=== PATIENT | female | born 2000 | race Caucasian/White ===

== ENCOUNTER 2023-03-19 13:34 | Emergency (ER) | payer MEDICAID ==
[~2023-03-19] VITALS: Ht 162.6 cm; Wt 90.7 kg
[2023-03-19] VITALS (9 sets, daily range): BP systolic 115–132; BP diastolic 67–89
[2023-03-19 15:15] LABS: BASO% 0.5 % (0-3); EOS% 4.2 % (0-8); HEMATOCRIT 40.5 % (37.0-47.0); HEMOGLOBIN 12.8 g/dl (12.0-16.0); IMMATURE GRANULOCYTES 0.9 % (0.0-5.0); LYMPH% 20.3 % (15-41); MEAN CELL VOLUME 89.6 fL CALC (80.0-100.0); MEAN CORPUSCULAR HGB 28.3 pG CALC (26.0-32.0); MEAN CORPUSCULAR HGB CONC 31.6 g/dL CAL (32.0-36.0); MONO% 4.2 % (2-13); NEUT# 10.42 thou/uL (2.00-7.15); NEUT% 69.9 % (42-76); RED BLOOD COUNT 4.52 mill/uL (4.20-5.60)
[2023-03-19 15:26] LABS: ALBUMIN 4.3 g/dL (3.2-5.0); ALKALINE PHOSPHATASE 92 u/l (38-126); ANION GAP 14 (6-22 (CALC)); BILIRUBIN, TOTAL 0.3 mg/dL (0.02-1.3); BUN 16 mg/dL (7-17); BUN/CREATININE RATIO 22 (12-20 (CALC)); CARBON DIOXIDE 25 mmol/l (22-30); CHLORIDE 104 mmol/l (95-108); CREATININE 0.7 mg/dL (0.5-1.0); GFR FOR AFR.AMER. > 60 ML/MIN (>=60 (CALC)); GFR OTHER RACES > 60 ML/MIN (>=60 (CALC)); POTASSIUM 3.5 mmol/l (3.5-5.1); SGOT/AST 29 u/l (14-36); SODIUM 140 mmol/l (137-146); TOTAL PROTEIN 8.1 g/dL (6.3-8.2)
[2023-03-19] MEDS ORDERED: ALBUTEROL108 MCG/AC (15:55)
[2023-03-19] MEDS ORDERED: PREDNISONE50 MG PO (16:04)
== END 2023-03-19 16:54 | disposition home or self-care (01) ==
LOC: ED 13:34
PROVIDERS: Family Medicine
DX: J45.901 Unspecified asthma with (acute) exacerbation (principal)

== ENCOUNTER 2023-08-14 20:18 | Emergency (ER) | payer MEDICAID ==
[2023-08-14] VITALS (8 sets, daily range): BP systolic 103–131; BP diastolic 60–72
[~2023-08-14] VITALS: Ht 162.6 cm; Wt 113.0 kg
[~2023-08-14 20:18] MED LIST: ALBUTEROL108 MCG/AC; MOMETASONE FURO0.11 EX; PREDNISONE50 MG PO; SYMBICORT 80-4.5MCG INHW/SPAC
[2023-08-14 20:49] LABS: BASO% 0.2 % (0-3); HEMATOCRIT 38.3 % (37.0-47.0); HEMOGLOBIN 12.7 g/dl (12.0-16.0); IMMATURE GRANULOCYTES 0.2 % (0.0-5.0); LYMPH% 15.3 % (15-41); MEAN CELL VOLUME 86.5 fL CALC (80.0-100.0); MEAN CORPUSCULAR HGB 28.7 pG CALC (26.0-32.0); MEAN CORPUSCULAR HGB CONC 33.2 g/dL CAL (32.0-36.0); MONO% 5.9 % (2-13); NEUT# 9.31 thou/uL (2.00-7.15); NEUT% 76.4 % (42-76); RED BLOOD COUNT 4.43 mill/uL (4.20-5.60)
[2023-08-14 20:59] LABS: ALKALINE PHOSPHATASE 113 u/l (38-126); BUN 10 mg/dL (7-17); BUN/CREATININE RATIO 17 (12-20 (CALC)); CARBON DIOXIDE 20 mmol/l (22-30); CHLORIDE 107 mmol/l (95-108); CREATININE 0.6 mg/dL (0.5-1.0); GFR FOR AFR.AMER. > 60 ML/MIN (>=60 (CALC)); GFR OTHER RACES > 60 ML/MIN (>=60 (CALC)); SGOT/AST 31 u/l (14-36); SODIUM 138 mmol/l (137-146); TOTAL PROTEIN 6.6 g/dL (6.3-8.2)
[2023-08-14 21:00] LABS: ANION GAP 14 (6-22 (CALC)); BILIRUBIN, TOTAL 0.6 mg/dL (0.02-1.3); POTASSIUM 3.1 mmol/l (3.5-5.1)
[2023-08-14 22:49] LABS: URINE BILIRUBIN - DIPSTICK Negative (NEGATIVE); URINE BLOOD DIPSTICK Trace-lysed (NEGATIVE); URINE COLOR Yellow; URINE GLUCOSE - DIPSTICK Negative (NEGATIVE); URINE KETONE Negative (NEGATIVE); URINE LEUK ESTERASE Large (NEGATIVE); URINE NITRITE - DIPSTICK Negative (Negative); URINE PH 5.5 (4.5-8.0); URINE PROTEIN - DIPSTICK Negative (NEG-TRACE); URINE UROBILINOGEN - DIPSTICK 0.2 E.U./dL (0.2)
[2023-08-14 22:59] LABS: URINE BACTERIA MODERATE hpf; URINE MUCUS FEW hpf (NONE-FEW); URINE SQUAMOUS EPITHELIAL CELL FEW EPI/hpf (0-FEW)
== END 2023-08-14 23:40 | disposition home or self-care (01) ==
LOC: ED 20:18
PROVIDERS: Family Medicine
DX: J45.901 Unspecified asthma with (acute) exacerbation (principal); F14.988 Cocaine use, unspecified with other cocaine-induced disorder; J98.01 Acute bronchospasm; Z20.822 Contact with and (suspected) exposure to COVID-19

== ENCOUNTER 2024-02-21 15:11 | Emergency (ER) | payer MEDICAID ==
[~2024-02-21] VITALS: Ht 170.2 cm; Wt 100.0 kg
[~2024-02-21 15:11] MED LIST changes: +ALBUTEROL SUL0.083 % IN; +PREDNISONE20 MG PO; +PROAIR HFA IN; +VENTOLIN HFA108 MCG INHW/SPAC; +ZPAK PO
[2024-02-21] MEDS ORDERED: MAGNESIUM SULFATE HEPTAHYDRATE 50 ML IV ONE (15:20)
[2024-02-21] MEDS ORDERED: methylPREDNISolone SODIUM SUCC 125 MG/2 ML SDV IV ONE (15:20)
[2024-02-21 15:21] VITALS: BP 113/70
[2024-02-21] MEDS ORDERED: IPRATROPIUM-Albuterol 0.5MG-2.5MG/3 ML NEB ONE ×2 (15:25)
[2024-02-21 15:33] VITALS: BP 125/106
[2024-02-21 15:37] LABS: BASO% 0.6 % (0-3); HEMATOCRIT 40.4 % (37.0-47.0); HEMOGLOBIN 13.1 g/dl (12.0-16.0); IMMATURE GRANULOCYTES 0.2 % (0.0-5.0); LYMPH% 20.1 % (15-41); MEAN CELL VOLUME 89.6 fL CALC (80.0-100.0); MEAN CORPUSCULAR HGB CONC 32.4 g/dL CAL (32.0-36.0); MONO% 3.9 % (2-13); NEUT# 8.45 thou/uL (2.00-7.15); NEUT% 59.2 % (42-76); RED BLOOD COUNT 4.51 mill/uL (4.20-5.60); RED CELL DISTRI WIDTH 14.1 % (11.5-15.5)
[2024-02-21 15:49] LABS: ALBUMIN 4.3 g/dL (3.2-5.0); BILIRUBIN, TOTAL 0.4 mg/dL (0.02-1.3); CREATININE 0.7 mg/dL (0.5-1.0); POTASSIUM 3.2 mmol/l (3.5-5.1); TOTAL PROTEIN 7.6 g/dL (6.3-8.2)
[2024-02-21] MEDS ORDERED: ALBUTEROL SULFATE 2.5 MG VIAL IN ONE (16:05)
[2024-02-21] MEDS ORDERED: IPRATROPIU0.5 MG/3 M IN (17:09)
[2024-02-21 17:51] VITALS: BP 125/106
[2024-02-24] MEDS ORDERED: XANAX0.5 MG PO (12:13)
== END 2024-02-21 17:55 | disposition home or self-care (01) ==
LOC: ED 15:11
PROVIDERS: Family Medicine
DX: J45.901 Unspecified asthma with (acute) exacerbation (principal); Z20.822 Contact with and (suspected) exposure to COVID-19
CPT/HCPCS: J3475

== ENCOUNTER 2024-02-22 07:53 | Observation (INO) | payer MEDICAID ==
[~2024-02-22] VITALS: Ht 170.2 cm; Wt 99.7 kg
[2024-02-22] VITALS (31 sets, daily range): BP systolic 91–152; BP diastolic 51–113
[~2024-02-22 07:53] MED LIST changes: +IPRATROPIU0.5 MG/3 M IN
--- NOTE | 2024-02-22 07:55 | NUR ---
PT TO ER ROOM 1 WITH STEADY GAIT.
[2024-02-22] MEDS ORDERED: IPRATROPIUM-Albuterol 0.5MG-2.5MG/3 ML NEB ONE ×2 (08:10)
[2024-02-22] MEDS ORDERED: methylPREDNISolone SODIUM SUCC 125 MG/2 ML SDV IV ONE (08:10)
[2024-02-22] MEDS ORDERED: MAGNESIUM SULFATE HEPTAHYDRATE 50 ML IV ONE ×2 (08:15→14:10)
--- NOTE | 2024-02-22 08:17 | NUR ---
PT PLACED ON 3 L NC DUE TO OXYGEN SATURATION NOT IMPROVING.
[2024-02-22] MEDS ORDERED: SODIUM CHLORIDE 0.9% 1,000 ML IV ONE (08:30)
--- NOTE | 2024-02-22 08:30 | NUR ---
PATIENT BEING MEDICATED PER ORDER. OXYGEN SATURATIONS REMAIN LOW DESPITE TREATMENTS. WILL CONTINUE TO MONITOR.
[2024-02-22 08:35] LABS: HEMATOCRIT 42.1 % (37.0-47.0); HEMOGLOBIN 13.4 g/dl (12.0-16.0); IMMATURE GRANULOCYTES 0.9 % (0.0-5.0); LYMPH% 6.7 % (15-41); MEAN CELL VOLUME 90.5 fL CALC (80.0-100.0); MEAN CORPUSCULAR HGB 28.8 pG CALC (26.0-32.0); MEAN CORPUSCULAR HGB CONC 31.8 g/dL CAL (32.0-36.0); MONO% 1.1 % (2-13); NEUT# 19.8 thou/uL (2.00-7.15); NEUT% 91.3 % (42-76); RED BLOOD COUNT 4.65 mill/uL (4.20-5.60); RED CELL DISTRI WIDTH 14.3 % (11.5-15.5)
[2024-02-22] MEDS ORDERED: ALBUTEROL SULFATE 2.5 MG VIAL IN ONE ×2 (08:50→09:05)
[2024-02-22 08:52] LABS: ALBUMIN 4.5 g/dL (3.2-5.0); BILIRUBIN, TOTAL 0.3 mg/dL (0.02-1.3); CREATININE 0.5 mg/dL (0.5-1.0); POTASSIUM 3.7 mmol/l (3.5-5.1); TOTAL PROTEIN 7.4 g/dL (6.3-8.2)
[2024-02-22] MEDS ORDERED: EPINEPHrine HCL 1 MG/ML AMP IM ONE (09:05)
[2024-02-22] MEDS ORDERED: ALBUTEROL SULFATE 2.5 MG VIAL ONE (09:10)
--- NOTE | 2024-02-22 09:13 | NUR ---
PT RECEIVING BREATHING TREATMENTS AT THIS TIME. WILL CONTINUE TO MONITOR.
--- NOTE | 2024-02-22 10:02 | NUR ---
PT AWAITING ADMISSION TO NEW ROOM. WILL CONTINUE TO MONITOR.
--- NOTE | 2024-02-22 10:25 | NUR ---
PT ARRIVED TO [facility] FROM ER VIA W/C. PT IS ALERT AND ORIENTED X 3, NO C/O PAIN AT THIS TIME. PT HAS O2 @ 3 LITERS ON VIA NC, O2 SATS @ 94%; PT BREATHING IS LABORED BUT SOB IS IMPROVING, LUNG SOUNDS CLEAR AND DIMINISHED. PT ABD IS SOFT WITH ACTIVE BS, LBM 2 DAYS AGO REPORTED BY PT. PT SKIN CLEAN AND INTACT. PT AMBULATES WELL TO BATHROOM FOR TOILETING NEEDS. PT HAS CALL LIGHT WITHIN REACH AND SAFETY MEASURES IN PLACE AT THIS TIME.
--- NOTE | 2024-02-22 10:25 | NUR ---
REPORT GIVEN TO HODAN
[2024-02-22] MEDS ORDERED: ACETAMINOPHEN 325 MG/TAB PO PRN (11:50)
[2024-02-22] MEDS ORDERED: MAGNESIUM HYDROXIDE 30 ML UDC PO PRN (11:50)
--- NOTE | 2024-02-22 12:00 | NUR ---
PT SITTING UP IN BED EATING LUNCH. PT HR IN THE 130'S, PT DENIES ANY FEELINGS OF HEART PALPATATIONS. EKG ORDERED AND NORMAL, ST. HR DOWN TO 115. PROVIDER IS AWARE. PT HAS CALL LIGHT WITHIN REACH AND SAFETY MEASURES IN PLACE AT THIS TIME.
[2024-02-22] MEDS ORDERED: methylPREDNISolone Sod Succ 40 MG/ML SDV IV SCH (14:00)
[2024-02-22] MEDS ORDERED: IPRATROPIUM-Albuterol 0.5MG-2.5MG/3 ML NEB PRN (14:05)
[2024-02-22] MEDS ORDERED: LEVALBUTEROL HCL 1.25 MG/3 ML VIAL ONE (14:08)
[2024-02-22] MEDS ORDERED: ALPRAZolam 0.25 MG PO PRN (14:10)
[2024-02-22] MEDS ORDERED: LEVALBUTEROL HCL 1.25 MG/3 ML VIAL NEB PRN (14:10)
[2024-02-22] MEDS ORDERED: IPRATROPIUM-Albuterol 0.5MG-2.5MG/3 ML NEB SCH (15:00)
[2024-02-22] MEDS ORDERED: LEVALBUTEROL HCL 1.25 MG/3 ML VIAL NEB SCH (15:00)
[2024-02-22] MEDS ORDERED: IPRATROPIUM BROMIDE 0.5 MG/2.5 ML SOL IN SCH (15:00)
[2024-02-22] MEDS ORDERED: ALPRAZolam 0.5 MG/TAB PO PRN (15:14)
--- NOTE | 2024-02-22 16:00 | NUR ---
PT IN BED WITH HOB UP, PT CONTINUES TO HAVE SOB, BREATHING TX ADMINISTERED, PROVIDER IS AWARE. NEW ORDERS ENTERED. PT HAS CALL LIGHT WITHIN REACH AND SAFETY MEASURES IN PLACE AT THIS TIME.
--- NOTE | 2024-02-22 16:20 | NUR ---
PT ARRIVED TO THE UNIT VIA , PT AMBULATED TO THE BED FROM THE WITH A STEADY GAIT, PT'S RESPIRATION RATE IS 28, PT ORIENTED TO THE ROOM AND CALL MAGANA SYSTEM, PT IS A&O X4, COARSE LUNG SOUNDS, PT IS ON O2 AT 3L VIA NC,PUPILS PERRL, STRONG RADIAL AND PEDAL PULSES, PT APPEARS TO BE EXTREMLY ANXIOUS, RELAXATION TECHS HAVE BEEN ATTEMPTED WITH NO SUCCESS, SAFETY MEASURES INFORCED, CALL MAGANA WITHIN REACH
--- NOTE | 2024-02-22 16:33 | NUR ---
PT TRANSFERRED TO ICU BED 6 PER ; PT C/O THAT ROOM TEMPERATURE IS TOO HOT AND WANTS COOLER ROOM.
[2024-02-22] MEDS ORDERED: AZITHROMYCIN 500 MG in SODIUM CHLORIDE 0.9% 250 ML IV SCH (17:00)
--- NOTE | 2024-02-22 17:00 | NUR ---
PT SITTING UP IN BED EATING DINNER, PT DENIES ANY NEEDS AT THIS TIME, CALL MAGANA WITHIN REACH
[2024-02-22] MEDS ORDERED: ALPRAZolam 0.5 MG/TAB PO ONE (17:25)
--- NOTE | 2024-02-22 17:30 | NUR ---
PER PT'S REQUEST HER MOTHER WAS CALLED AND GIVEN AN UPDATE ON HER
[2024-02-22] MEDS ORDERED: SODIUM CHLORIDE 0.9% 1,000 ML IV PRN (18:35)
--- NOTE | 2024-02-22 20:00 | NUR ---
pt assessed , expiratory wheezes on right side , anterior and posteriorly to the base. Left side clear. no pain , pt slightly anxius offfered xanax declined at this time. HR 110-120. all monitors on . 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 gave blankets hung IVF at 125cc/hr. appled water humidirt to nsal cannula , gave pt kleenex and cold wsh rags , mouthwash. monitoring pt closely.
[2024-02-22] MEDS ORDERED: ENOXAPARIN SODIUM 40 MG/0.4 ML SYR SC SCH (21:00)
[2024-02-22] MEDS ORDERED: MONTELUKAST SODIUM 10 MG/TAB PO SCH (21:00)
--- NOTE | 2024-02-22 22:00 | NUR ---
pt assessed , no change in assessment. all monitors on pt sitting up in bed . on [place].
[2024-02-23] VITALS: BP 117/70
--- NOTE | 2024-02-23 | NUR ---
pt assessment better less anxious heart rate down pt resting comfortably. O2 sats 92-94 , pt gettign nebd from RT.
--- NOTE | 2024-02-23 02:00 | NUR ---
pt assessment unchanged , pt walked to bathroom earlier steady gait. ivf on at 125cc/h NS. resting comfortbaly. non labored breathing . oxygen on at 2 L. call palmer within reach.
[2024-02-23 04:00] VITALS: BP 99/70
--- NOTE | 2024-02-23 04:00 | NUR ---
assessment unchanged call within reach . RR easy and unlabored. 2L NC ivf at 125cc/hr.o monitoring and evaluation advisor sats 94%
[2024-02-23 05:47] LABS: HEMATOCRIT 38.9 % (37.0-47.0); HEMOGLOBIN 12.4 g/dl (12.0-16.0); IMMATURE GRANULOCYTES 1.1 % (0.0-5.0); MEAN CORPUSCULAR HGB 29.3 pG CALC (26.0-32.0); MEAN CORPUSCULAR HGB CONC 31.9 g/dL CAL (32.0-36.0); PLATELET COUNT 362 thou/uL (130-400); RED BLOOD COUNT 4.23 mill/uL (4.20-5.60); RED CELL DISTRI WIDTH 14.9 % (11.5-15.5)
[2024-02-23 06:00] VITALS: BP 100/60
[2024-02-23 06:00] LABS: ALBUMIN 3.6 g/dL (3.2-5.0); BILIRUBIN, TOTAL 0.3 mg/dL (0.02-1.3); CREATININE 0.4 mg/dL (0.5-1.0); MAGNESIUM 2.1 mg/dL (1.6-2.3); TOTAL PROTEIN 6.3 g/dL (6.3-8.2)
[2024-02-23 06:14] LABS: MANUAL DIFFERENTIAL YES
[2024-02-23 06:23] LABS: BAND 1 % (0-8)
--- NOTE | 2024-02-23 06:23 | NUR ---
pt rounded on am solumedrol given fluids going at 125cc/hr, pt now in NSR , not ST anymore. HR decreased to normal range, BP 100/60, pt resting comfortably on 2L. call palmer within reach.
--- NOTE | 2024-02-23 07:00 | NUR ---
PT LAYING IN BED RESTING WITH EYES CLOSED, AROUSES EASILY TO VERBAL STIMULI, PT A&O X3, PUPILS PERRL, LUNG SOUNDS DIMINISHED WITH EXPIRATORY WHEEZES ON THE R SIDE, STRONG RADIAL AND PEDAL PULSES, 20G RAC IV WITH FLUIDS INFUSING AT PRESCRIBED RATE, SAFETY MEASURES REINFORCED, CALL MAGANA WITHIN REACH
--- NOTE | 2024-02-23 08:30 | NUR ---
ISABEL AT BEDSIDE DISCUSSING PLAN OF CARE
--- NOTE | 2024-02-23 08:50 | NUR ---
PT SITTING UP IN THE BED EATING BREAKFAST, SHOWS NO SIGNS OF DISTRESS, REMINDED TO CALL FOR ASSISTANCE, CALL MAGANA WITHIN REACH
[2024-02-23 09:16] VITALS: BP 116/88
[2024-02-23] MEDS ORDERED: PREDNISONE50 MG PO (11:55)
--- NOTE | 2024-02-23 12:00 | NUR ---
PT SITTING UP IN BED WATCHING TV AND EATING LUNCH, DENIES ANY NEEDS AT THIS TIME, PT REMINDED TO CALL FOR ASSISTANCE, CALL MAGANA WITHIN REACH
--- NOTE | 2024-02-23 15:05 | NUR ---
Discharge instructions given. Patient verbalizes understanding of same. Discharged in stable condition via Wheelchair to Home with staff. All belongings sent with pt.
[2024-02-23] MEDS ORDERED: methylPREDNISolone Sod Succ 40 MG/ML SDV IV SCH (21:00)
--- NOTE | 2024-02-24 12:06 | NUR ---
Discharge follow up call completed 02/24/24. Pt states she has been doing fairly well with a few episodes of chest tightness which she attributes to anxiety. Patient asked if hospitalist would be willing to prescribe anxiety medication until she can get in to her PCP. Request has been referred to case management. Patient is contacting PCP today to schedule a follow up appointment. No other needs or concerns verbalized at this time.
[2024-02-24] MEDS ORDERED: XANAX0.5 MG PO (12:13)
== END 2024-02-23 15:05 | disposition home or self-care (01) ==
LOC: ED 07:53 → ED-I 09:26 → ED 09:48 → MS2 09:49 → ICU 16:30
PROVIDERS: Family Medicine; ADMIT Student in an Organized Health Care Education/Training Program; ATTEND Student in an Organized Health Care Education/Training Program
DX: J45.51 Severe persistent asthma with (acute) exacerbation (principal); J96.91 Respiratory failure, unspecified with hypoxia; E87.3 Alkalosis; F41.9 Anxiety disorder, unspecified; E66.9 Obesity, unspecified; Z20.822 Contact with and (suspected) exposure to COVID-19
CPT/HCPCS: J1650; J3475

== ENCOUNTER 2024-03-12 21:25 | Inpatient (IN) | payer OTHER, MEDICAID ==
[~2024-03-12] VITALS: Ht 167.6 cm; Wt 111.0 kg
[~2024-03-12 21:25] MED LIST changes: +XANAX0.5 MG PO
[2024-03-12] MEDS ORDERED: PROPOFOL 100 ML IV ONE (21:31)
[2024-03-12] MEDS ORDERED: PROPOFOL 10 MG/ML 100ML VIAL IV ONE (21:40)
[2024-03-12] MEDS ORDERED: ALBUTEROL SULFATE 2.5 MG VIAL IN ONE ×2 (21:50)
[2024-03-12] MEDS ORDERED: methylPREDNISolone SODIUM SUCC 125 MG/2 ML SDV IV ONE (21:55)
[2024-03-12] MEDS ORDERED: diazePAM 10 MG/2 ML VIAL ONE (22:02)
[2024-03-12] MEDS ORDERED: diazePAM 10 MG/2 ML VIAL IV ONE (22:05)
[2024-03-12 22:11] LABS: BASO% 0.7 % (0-3); EOS% 11.5 % (0-8); HEMATOCRIT 36.3 % (37.0-47.0); HEMOGLOBIN 11.6 g/dl (12.0-16.0); IMMATURE GRANULOCYTES 3.4 % (0.0-5.0); LYMPH% 19.5 % (15-41); MEAN CELL VOLUME 89.4 fL CALC (80.0-100.0); MEAN CORPUSCULAR HGB 28.6 pG CALC (26.0-32.0); MONO% 2.6 % (2-13); NEUT# 12.97 thou/uL (2.00-7.15); NEUT% 62.3 % (42-76); RED BLOOD COUNT 4.06 mill/uL (4.20-5.60); RED CELL DISTRI WIDTH 14.4 % (11.5-15.5)
[2024-03-12] MEDS ORDERED: METOPROLOL TARTRATE 5 MG/5 ML VIAL IV ONE (22:35)
[2024-03-12 22:39] LABS: POTASSIUM 4.3 mmol/l (3.5-5.1); TOTAL PROTEIN 7.3 g/dL (6.3-8.2)
[2024-03-12 22:40] LABS: ALBUMIN 4.4 g/dL (3.2-5.0); BILIRUBIN, TOTAL 0.5 mg/dL (0.02-1.3)
[2024-03-12 23:52] LABS: URINE BILIRUBIN - DIPSTICK Negative (NEGATIVE); URINE BLOOD DIPSTICK Large (NEGATIVE); URINE COLOR Yellow; URINE GLUCOSE - DIPSTICK Negative (NEGATIVE); URINE KETONE Negative (NEGATIVE); URINE LEUK ESTERASE Negative (NEGATIVE); URINE NITRITE - DIPSTICK Negative (Negative); URINE PH 5.5 (4.5-8.0); URINE PROTEIN - DIPSTICK 100 mg/dL (NEG-TRACE); URINE SPECIFIC GRAVITY >=1.030; URINE UROBILINOGEN - DIPSTICK 0.2 E.U./dL (0.2)
[2024-03-12] MEDS ORDERED: XANAX0.25 MG PO (23:59)
[2024-03-13] VITALS (18 sets, daily range): BP systolic 102–140; BP diastolic 47–113
[2024-03-13] MEDS ORDERED: VENTOLIN2 MG PO
[2024-03-13 00:04] LABS: URINE RBC 25-50 RBC/hpf (0-5); URINE SQUAMOUS EPITHELIAL CELL FEW EPI/hpf (0-FEW)
[2024-03-13] MEDS ORDERED: MONTELUKAST SOD10 MG PO (00:04)
[2024-03-13 00:05] LABS: URINE CASTS RARE lpf (NONE-RARE)
[2024-03-13] MEDS ORDERED: SODIUM CHLORIDE 0.9% 1,000 ML IV ONE (01:30)
[2024-03-13] MEDS ORDERED: SODIUM CHLORIDE 0.9% 1,000 ML IV PRN (02:45)
[2024-03-13] MEDS ORDERED: ALBUTEROL SULFATE 2.5 MG VIAL IN PRN (02:50)
[2024-03-13] MEDS ORDERED: ACETAMINOPHEN 325 MG/TAB PO PRN (02:50)
[2024-03-13] MEDS ORDERED: ALBUTEROL SULFATE 2.5 MG VIAL IN SCH (07:00)
[2024-03-13] MEDS ORDERED: AZITHROMYCIN 500 MG in SODIUM CHLORIDE 0.9% 250 ML IV SCH (08:00)
[2024-03-13] MEDS ORDERED: IBUPROFEN 600 MG/TAB PO PRN (14:20)
[2024-03-13] MEDS ORDERED: IPRATROPIUM BROMIDE 0.5 MG/2.5 ML SOL IN PRN (15:55)
[2024-03-13] MEDS ORDERED: MAGNESIUM SULFATE HEPTAHYDRATE 50 ML IV SCH (16:30)
[2024-03-13] MEDS ORDERED: methylPREDNISolone Sod Succ 40 MG/ML SDV IV SCH (16:30)
[2024-03-13] MEDS ORDERED: ALPRAZolam 0.5 MG/TAB PO PRN (17:00)
[2024-03-14] VITALS (21 sets, daily range): BP systolic 94–124; BP diastolic 52–77
[2024-03-14 05:09] LABS: HEMOGLOBIN 10.3 g/dl (12.0-16.0); IMMATURE GRANULOCYTES 0.9 % (0.0-5.0); LYMPH% 3.3 % (15-41); MEAN CELL VOLUME 87.8 fL CALC (80.0-100.0); MEAN CORPUSCULAR HGB 29.2 pG CALC (26.0-32.0); MEAN CORPUSCULAR HGB CONC 33.2 g/dL CAL (32.0-36.0); MONO% 2.4 % (2-13); NEUT# 26.88 thou/uL (2.00-7.15); NEUT% 93.4 % (42-76); RED BLOOD COUNT 3.53 mill/uL (4.20-5.60); RED CELL DISTRI WIDTH 14.6 % (11.5-15.5)
[2024-03-14 05:32] LABS: CREATININE 0.5 mg/dL (0.5-1.0); MAGNESIUM 2.1 mg/dL (1.6-2.3); POTASSIUM 3.5 mmol/l (3.5-5.1)
[2024-03-14 05:34] LABS: ALBUMIN 3.4 g/dL (3.2-5.0); BILIRUBIN, TOTAL 0.2 mg/dL (0.02-1.3); TOTAL PROTEIN 5.8 g/dL (6.3-8.2)
[2024-03-14] MEDS ORDERED: IPRATROPIUM-Albuterol 0.5MG-2.5MG/3 ML NEB SCH (08:15)
[2024-03-14] MEDS ORDERED: methylPREDNISolone Sod Succ 40 MG/ML SDV IV SCH (08:30)
[2024-03-15] VITALS (9 sets, daily range): BP systolic 96–118; BP diastolic 50–73
[2024-03-15] MEDS ORDERED: PREDNISONE10 MG PO (12:53)
[2024-03-15] MEDS ORDERED: LEVOFLOXACIN750 MG PO (12:53)
[2024-03-15] MEDS ORDERED: methylPREDNISolone Sod Succ 40 MG/ML SDV IV SCH (21:00)
== END 2024-03-15 14:20 | disposition home or self-care (01) | DRG 917 ==
LOC: ED 21:25 → ED-I 03-13 02:10 → ED 03-13 02:14 → ED-I 03-13 02:15 → MS2 03-13 07:52 → ICU 03-13 17:15
PROVIDERS: Family Medicine; Nurse Practitioner Family; ADMIT Internal Medicine; ATTEND Internal Medicine
PROC: 5A0945A Assistance with Respiratory Ventilation, 24-96 Consecutive Hours, High Flow/Velocity Cannula (ICD-10-PCS; principal; 2024-03-13)
DX: T40.5X1A Poisoning by cocaine, accidental (unintentional), initial encounter (principal); J96.01 Acute respiratory failure with hypoxia; J45.901 Unspecified asthma with (acute) exacerbation; E87.20 Acidosis, unspecified; J68.3 Other acute and subacute respiratory conditions due to chemicals, gases, fumes and vapors; F14.10 Cocaine abuse, uncomplicated; E66.9 Obesity, unspecified; F41.9 Anxiety disorder, unspecified; Z88.0 Allergy status to penicillin; Z20.822 Contact with and (suspected) exposure to COVID-19
CPT/HCPCS: J3475

== ENCOUNTER 2024-07-17 11:24 | Emergency (ER) | payer OTHER, MEDICAID ==
[~2024-07-17] VITALS: Ht 170.2 cm; Wt 97.5 kg
[~2024-07-17 11:24] MED LIST changes: +BREO ELLIPTA IN; +LEVOFLOXACIN750 MG PO; +MONTELUKAST SOD10 MG PO; +PREDNISONE10 MG PO; +VENTOLIN2 MG PO; +XANAX0.25 MG PO
[2024-07-17] MEDS ORDERED: methylPREDNISolone SODIUM SUCC 125 MG/2 ML SDV IV ONE (11:40)
[2024-07-17] MEDS ORDERED: IPRATROPIUM-Albuterol 0.5MG-2.5MG/3 ML NEB ONE ×2 (11:40)
[2024-07-17 11:49] LABS: BASO% 0.3 % (0-3); EOS% 4.7 % (0-8); HEMATOCRIT 38.5 % (37.0-47.0); HEMOGLOBIN 12.5 g/dl (12.0-16.0); IMMATURE GRANULOCYTES 0.2 % (0.0-5.0); LYMPH% 22.4 % (15-41); MEAN CELL VOLUME 84.1 fL CALC (80.0-100.0); MEAN CORPUSCULAR HGB 27.3 pG CALC (26.0-32.0); MEAN CORPUSCULAR HGB CONC 32.5 g/dL CAL (32.0-36.0); MONO% 7.6 % (2-13); NEUT# 4.12 thou/uL (2.00-7.15); NEUT% 64.8 % (42-76); RED BLOOD COUNT 4.58 mill/uL (4.20-5.60); RED CELL DISTRI WIDTH 15.9 % (11.5-15.5)
[2024-07-17] MEDS ORDERED: ONDANSETRON HCl 4 MG/2 ML SDV IV ONE (12:00)
[2024-07-17] MEDS ORDERED: MAGNESIUM SULFATE HEPTAHYDRATE 50 ML IV ONE (12:10)
[2024-07-17 12:13] LABS: ALBUMIN 4.5 g/dL (3.2-5.0); CREATININE 0.7 mg/dL (0.5-1.0); TOTAL PROTEIN 8.6 g/dL (6.3-8.2)
[2024-07-17 12:16] LABS: BILIRUBIN, TOTAL 0.7 mg/dL (0.02-1.3); POTASSIUM 3.7 mmol/l (3.5-5.1)
[2024-07-17] MEDS ORDERED: IPRATROPIUM-Albuterol 0.5MG-2.5MG/3 ML IN STA (13:34)
[2024-07-17] MEDS ORDERED: DOXYCYCLINE HYCLATE 100 MG/CAP PO ONE (14:05)
[2024-07-17] MEDS ORDERED: VIBRAMYCIN100 M2 PO (14:14)
[2024-07-17] MEDS ORDERED: LEVOCETIRIZINE D5 MG PO (14:14)
[2024-07-17 14:15] VITALS: BP 113/78
== END 2024-07-17 14:53 | disposition home or self-care (01) | DRG 194 ==
LOC: ED 11:24
PROVIDERS: Family Medicine
DX: J18.9 Pneumonia, unspecified organism (principal); J45.901 Unspecified asthma with (acute) exacerbation; Z20.822 Contact with and (suspected) exposure to COVID-19
CPT/HCPCS: J3475

== ENCOUNTER 2024-07-19 14:42 | Emergency (ER) | payer OTHER, MEDICAID ==
[~2024-07-19] VITALS: Ht 170.2 cm; Wt 97.0 kg
[~2024-07-19 14:42] MED LIST changes: +LEVOCETIRIZINE D5 MG PO; +VIBRAMYCIN100 M2 PO
[2024-07-19 14:50] VITALS: BP 125/89
[2024-07-19 15:00] VITALS: BP 120/75
[2024-07-19] MEDS ORDERED: ALBUTEROL SULFATE 2.5 MG VIAL NEB ONE (15:00)
[2024-07-19] MEDS ORDERED: DEXAMETHASONE SOD. PHOSPHATE 10 MG/ML VIAL IV ONE (15:00)
[2024-07-19] MEDS ORDERED: SODIUM CHLORIDE 0.9% 1,000 ML IV ONE (15:00)
[2024-07-19] MEDS ORDERED: MAGNESIUM SULFATE 50% 1 GM/2 ML IV ONE (15:00)
[2024-07-19] MEDS ORDERED: IPRATROPIUM BROMIDE 0.5 MG/2.5 ML SOL IN ONE (15:00)
[2024-07-19] MEDS ORDERED: TERBUTALINE SULFATE 1 MG/VIAL SDV SC ONE (15:00)
[2024-07-19] MEDS ORDERED: LORazepam 2 MG/ML IV ONE (15:25)
[2024-07-19] MEDS ORDERED: MAGNESIUM SULFATE HEPTAHYDRATE 50 ML IV SCH (15:30)
[2024-07-19 15:52] VITALS: BP 138/72
[2024-07-19 16:01] VITALS: BP 118/66
[2024-07-19 17:25] VITALS: BP 102/46
[2024-07-19] MEDS ORDERED: SINGULAIR10 MG PO (18:09)
[2024-07-19 18:14] VITALS: BP 102/46
== END 2024-07-19 18:16 | disposition home or self-care (01) | DRG 203 ==
LOC: ED 14:42
DX: J45.901 Unspecified asthma with (acute) exacerbation (principal); Z20.822 Contact with and (suspected) exposure to COVID-19
CPT/HCPCS: J1100; J2060; J3475